=== PATIENT | female | born 1985 | race Caucasian/White ===

== ENCOUNTER 2017-08-26 08:00 | Outpatient (CLI) | payer OTHER | END 2017-08-26 08:01 | disposition home or self-care (01) | LOC: ULT 08:00 → BICULT 08:01 | PROVIDERS: ATTEND Obstetrics & Gynecology | DX: N63.0 Unspecified lump in unspecified breast (principal) ==

== ENCOUNTER 2018-06-11 05:26 | Inpatient (IN) | payer OTHER ==
[2018-06-11] MEDS ORDERED: CEFAZOLIN/Water 2 GM/20 ML SYRINGE SLOW IVP SCH (05:39)
[2018-06-11] MEDS ORDERED: Lactated Ringer's 1,000 ML IV SCH ×2 (05:39→11:31)
[2018-06-11] MEDS ORDERED: Bicitra 30 ML UDCUP PO SCH (05:39)
[2018-06-11] MEDS ORDERED: Promethazine HCl 25 MG/ML VIAL IM PRN ×2 (05:39→11:31)
[2018-06-11] MEDS ORDERED: Ondansetron PF 4 MG/2 ML Vial IVP PRN ×2 (05:39→11:31)
[2018-06-11 06:17] VITALS: BMI 25.0
[2018-06-11 06:18] LABS: Hemoglobin 12.2 g/dL (12.0-16.0); Mean Corpuscular HGB CONC 31.5 g/dL (32.0-36.0); Mean Corpuscular Volume 88.9 fL (78.0-98.0); Mean Platelet Volume 7.1 fL (7.4-10.4); Platelet Count 215 thou/uL (130-400); RBC Distribution Width 15.6 % (11.5-14.5); Red Blood Cell (RBC) Count 4.35 mill/uL (4.20-5.40); White Blood Cell (WBC) Count 6.5 thou/uL (4.8-10.8)
[2018-06-11] MEDS ORDERED: Morphine PF 1 MG/ML SYR ONE (06:38)
[2018-06-11] MEDS ORDERED: Bupivacaine 0.75% W/DEXTROSE 8.25% 2 ML AMP ONE (06:38)
[2018-06-11] MEDS ORDERED: Oxytocin 10 UNITS/ML VIAL ONE (06:39)
[2018-06-11] MEDS ORDERED: Ondansetron PF 4 MG/2 ML Vial ONE ×2 (06:40→14:30)
[2018-06-11] MEDS ORDERED: PHENYLEPHRINE-NS 100 MCG/ML 10 ML SYRINGE ONE (06:41)
[2018-06-11] MEDS ORDERED: ePHEDrine/0.9% NaCl/PF SYRINGE 50 mg/10 ml ONE ×2 (06:42→14:30)
[2018-06-11 06:49] LABS: HBSAg Index 0.25 S/CO (0-0.99); Hep B Surf Ag Non-Reactive S/CO (NonReactive); Syphilis Antibody Nonreactive (Nonreactive); Syphilis Antibody Index 0.03 S/CO (<1.00 Non-Reactive)
[2018-06-11] MEDS ORDERED: CEFAZOLIN 2 GM/50 ML BAG ONE (06:56)
[2018-06-11] MEDS ORDERED: HYDROmorphone 2 MG/ML VIAL SLOW IVP PRN ×2 (08:12→08:13)
[2018-06-11] MEDS ORDERED: Ondansetron HCl/PF 4 MG/2 ML Vial IVP PRN ×2 (08:12→08:13)
[2018-06-11] MEDS ORDERED: L&D-Morphine 4 MG/ML VIAL SLOW IVP PRN ×2 (08:12→08:13)
[2018-06-11] MEDS ORDERED: Meperidine HCl/PF 25 MG/ML VIAL SLOW IVP PRN ×2 (08:12→08:13)
[2018-06-11] MEDS ORDERED: Ketorolac Tromethamine 30 MG/ML VIAL IVP SCH ×2 (08:15)
--- NOTE | 2018-06-11 08:24 | PDOC.LDHP ---
Labor and Delivery H&P Chief complaint: scheduled section HPI: Pt is a @ 39 weeks here for RCS, declines TOLAC. Current gestational age (weeks): 39 Due date: 06/17/18 Dating criteria: last menstrual period Grav: 2 Para: 1 OB History Details: 1CS Current complications: gestational diabetes Abnormal US findings: No Current medications: pre- vitamins Previous surgical history: low tranverse CS Allergies/Adverse Reactions: Allergies Allergy/AdvReac Type Severity Reaction Status Date / Time piperacillin [From Zosyn] Allergy Rash Verified 06/11/18 06:21 tazobactam [From Zosyn] Allergy Rash Verified 06/11/18 06:21 Social history: none - Physical Exam Vital signs reviewed and normal: yes General: resting Heart: RRR Lungs: CTAB Abdomen: gravid Extremeties: no edema FHT: category 1 - OB Labs Blood type: O RH: positive Antibody Screen: negative HIV: negative RPR: negative HEPSAg: negative 1 hour GCT: positive (3hrs) 3 hour GTT: positive Rubella: immune - Plan Plan: admit to L&D, informed consent obtained, anesthesia consult for pain management -: A/P: RCS @ 39 weeks for declines TOLAC.
--- NOTE | 2018-06-11 08:28 | PDOC.OPDEL ---
OB Operative/Delivery Note Delivery Dr/Surgeon: Ronen Assist: Jacqui Pre-Delivery Diagnosis: scheduled section Procedure/Post Delivery Dx: repeat low transverse CS Weeks gestation: 39 Anesthesia: spinal - Findings A Sex: female Weight: 8 lb - 1 min: 8 - 5 min: 9 - Additional Findings/Plan Placenta delivered: spontaneous findings: low transverse hysterotomy without extension, normal uterus, normal tubes, normal ovaries Estimated blood loss: 400ml Post delivery plan: routine recovery
--- NOTE | 2018-06-11 09:06 | OP ---
DATE OF PROCEDURE: 06/11/2018 PREOPERATIVE DIAGNOSES: 1. A 32-year-old G2, P1-0-0-1 at 39 weeks. 2. Gestational diabetes, diet controlled. 3. Declines trial of labor, request repeat section. POSTOPERATIVE DIAGNOSES: 1. A 32-year-old G2, P1-0-0-1 at 39 weeks. 2. Gestational diabetes, diet controlled. 3. Declines trial of labor, request repeat section. PROCEDURES PERFORMED: Repeat low transverse section. SURGEON: Matthew Hardwick D.O. TV PRODUCTION ASSISTANT: Regine Osman D.O. ANESTHESIA: Spinal per Hardy MILLER. COMPLICATIONS: None. ESTIMATED BLOOD LOSS: 400 mL. FINDINGS: 1. Low transverse hysterotomy without extension. 2. No intraabdominal adhesive disease. 3. Normal appearing uterus and tubes and ovaries bilaterally. 4. Vigorous female infant, Apgars 8 and 9, weight 8 pounds 0 ounces to nursery. 5. Placenta delivered intact with 3-vessel cord. 6. Uterine fundus firm. 7. Surgical sites and hysterotomy hemostatic. PROCEDURE DETAILS: The patient was taken back to the OR with IV fluids running. Once she was in the OR, spinal anesthesia was obtained. The patient was placed in dorsal supine position with a left la teral tilt. Prophylactic antibiotics were administered. SCDs were placed on lower extremities. A F oley catheter was placed using sterile technique. The abdomen was then prepped and draped in normal fashion for section. The surgeons were scrubbed in and anesthesia was tested and found to b e adequate. A Pfannenstiel skin incision was made through the skin with a scalpel, a skin incision w as carried down through the subcutaneous layer to the fascia. Once the fascia was reached, it was in cised in the midline and extended superior laterally using curved Bay scissors. Karen clamps were placed at the superior border of the fascia, which was sharply and bluntly dissected off the rectus a bdominis muscle to allow adequate space for the infant both superiorly and inferiorly. After adequat e space was created the rectus muscles were bluntly . The peritoneal cavity was bluntly ent ered and stretched laterally. An Vick O retractor was placed into the peritoneal cavity for retrac tion, visualization and protection of the wound. A bladder flap was created and the bladder was diss ected away from the planned hysterotomy site. A low transverse hysterotomy was made with the scalpel . Hysterotomy was bluntly entered with placenta immediately noted. The infant's head was then eleva jared through the hysterotomy and the infant was delivered with spontaneous amniotomy at that time and clear fluid noted. The 's body was delivered without difficulty. The infant had an immediate cry at the bedside. The nose and mouth were suctioned. Cord was doubly clamped and cut and the infa nt was handed off to special care nurses in attendance. Cord blood was collected. The placenta was delivered. Uterus was exteriorized, massaged to firm, and cleared of clot and debris with a clean, d ry sponge. The uterus was returned to the abdominal cavity. Hysterotomy was inspected with no exten sions noted. The hysterotomy was closed with Monocryl suture in a running locked fashion. After the hysterotomy was closed, the hysterotomy and pericolic gutters were irrigated and suctioned dry. Hys terotomy was inspected again with no bleeding noted. The Vick O retractor was taken out of the abd omen. The initial count was correct. The muscle belly and fascia were inspected with no areas of bl eeding noted. The fascia was reapproximated in a running fashion with PDS suture. After the fascia was closed, the subcutaneous tissue was irrigated and dried. Any small areas of bleeding were contro lled with Bovie cauterization. Subcutaneous tissue was reapproximated with a series of interrupted p ashley gut suture. The skin was closed with 4-0 Monocryl and dressed with Dermabond dressing. The cou nt was correct. The uterus again was massaged and noted to be firm. The patient was taken to recove ry room after being cleaned and dried in good condition.
[2018-06-11] MEDS ORDERED: NS / Oxytocin 40 units/1000ml 1,000 ML ONE (09:32)
[2018-06-11] MEDS ORDERED: Adacel (T-DAP) 0.5 ML VIAL IM ONE (11:31)
[2018-06-11] MEDS ORDERED: Lanolin Ointment 7 GM TUBE TOP PRN (11:31)
[2018-06-11] MEDS ORDERED: Meperidine HCl/PF 25 MG/ML VIAL IM PRN (11:31)
[2018-06-11] MEDS ORDERED: NS / Oxytocin 40 units/1000ml 1,000 ML IV SCH (11:31)
[2018-06-11] MEDS ORDERED: HYDROcodone/Acetaminophen 5/325 mg Tablet PO PRN ×2 (11:31)
[2018-06-11] MEDS ORDERED: Simethicone Chewable 80 MG TAB PO PRN (11:31)
[2018-06-11] MEDS ORDERED: diphenhydrAMINE 25 MG CAP PO PRN (11:31)
[2018-06-11] MEDS ORDERED: Bisacodyl 10 MG SUPP PR PRN (11:31)
[2018-06-11] MEDS ORDERED: Docusate Calcium (SURFAK) 240 MG CAP PO SCH (11:45)
[2018-06-11] MEDS ORDERED: Prenatal Vitamin 1 TAB PO SCH (11:45)
[2018-06-11] MEDS ORDERED: Ferrous Sulfate 325 MG TAB PO SCH (11:45)
[2018-06-11] MEDS: Ibuprofen 800 MG TAB PO SCH ×2 (14:52→23:09)
[2018-06-11] MEDS: Ferrous Sulfate 325 MG TAB PO SCH (18:32)
[2018-06-11] MEDS: Docusate Calcium (SURFAK) 240 MG CAP PO SCH (23:08)
[2018-06-12] MEDS: Ibuprofen 800 MG TAB PO SCH ×3 (04:59→21:26)
[2018-06-12 06:02] LABS: Hemoglobin 11.9 g/dL (12.0-16.0); Mean Corpuscular HGB CONC 32.9 g/dL (32.0-36.0); Mean Corpuscular Hemoglobin 29.3 pg (27.0-31.0); Mean Corpuscular Volume 88.9 fL (78.0-98.0); Mean Platelet Volume 6.7 fL (7.4-10.4); Platelet Count 180 thou/uL (130-400); RBC Distribution Width 15.5 % (11.5-14.5); Red Blood Cell (RBC) Count 4.06 mill/uL (4.20-5.40); White Blood Cell (WBC) Count 9.8 thou/uL (4.8-10.8)
--- NOTE | 2018-06-12 06:15 | PDOC.PP ---
Post Progress Note Post Day #: 1 Subjective: Doing well PO intake tolerated: yes Flatus: yes Ambulation: yes Vital Signs (12 hours) Temp Pulse Resp BP Pulse Ox 06/12/18 04:55 97.8 F 67 18 102/60 06/12/18 00:10 97.9 F 69 18 103/62 98 06/11/18 20:00 97.7 F 64 18 111/72 99 Weight Weight 165 lb - Physical Examination General: NAD Cardiovascular: no m/r/g Respiratory: clear to auscultation bilaterally Abdominal: + bowel sounds, lochia Extremities: negative homans (B) Skin: CS incision dry & intact (Sutured and DB closed) Neurological: no gross focal deficits Psychiatric: A&Ox3, normal affect Result Diagrams: 06/12/18 05:51 Additional Labs: Post Labs Blood Type O POSITIVE 06/11/18 05:49 Hep Bs Antigen Non-Reactive S/CO (NonReactive) 06/11/18 05:49 (1) delivery, delivered, current hospitalization Code(s): O82 - ENCOUNTER FOR DELIVERY WITHOUT INDICATION Status: Acute - Assessment/Plan POD1 doing well. Passing dlatus. Hx A1DM on diet control. We will continue obs and routine postop care today.
[2018-06-12] MEDS: Ferrous Sulfate 325 MG TAB PO SCH ×2 (08:26→16:26)
[2018-06-12] MEDS: Prenatal Vitamin 1 TAB PO SCH (08:40)
[2018-06-12] MEDS: Docusate Calcium (SURFAK) 240 MG CAP PO SCH ×2 (08:40→21:26)
[2018-06-13 05:12] VITALS: TEMP 97.9
[2018-06-13] MEDS: Ibuprofen 800 MG TAB PO SCH (06:08)
--- NOTE | 2018-06-13 06:46 | PDOC.PP ---
Post Progress Note Post Day #: 2 PO intake tolerated: yes Flatus: yes Ambulation: yes Vital Signs (12 hours) Temp Pulse Resp BP 06/13/18 04:45 97.9 F 74 18 101/59 L 06/12/18 23:48 97.6 F 68 18 100/60 Weight Weight 165 lb - Physical Examination General: NAD Cardiovascular: no m/r/g, RRR Respiratory: clear to auscultation bilaterally, non-labored breathing Abdominal: + bowel sounds, lochia, no distention, appropriately TTP Extremities: negative homans (B) Skin: CS incision dry & intact, no rash Neurological: no gross focal deficits Psychiatric: A&Ox3, normal affect Result Diagrams: 06/12/18 05:51 Additional Labs: Post Labs Blood Type O POSITIVE 06/11/18 05:49 Hep Bs Antigen Non-Reactive S/CO (NonReactive) 06/11/18 05:49 - Assessment/Plan doing well desires pod 2 dc from repeat cs
[2018-06-13 08:25] VITALS: BP 104/69
[2018-06-13] MEDS: Prenatal Vitamin 1 TAB PO SCH (09:19)
[2018-06-13] MEDS: Ferrous Sulfate 325 MG TAB PO SCH (09:20)
[2018-06-13] MEDS: Docusate Calcium (SURFAK) 240 MG CAP PO SCH (09:20)
== END 2018-06-13 12:35 | disposition home or self-care (01) | DRG 788 ==
LOC: L&D 05:26 → 3SW 10:40
PROVIDERS: ADMIT Obstetrics & Gynecology; ATTEND Obstetrics & Gynecology
PROC: 10D00Z1 Extraction of Products of Conception, Low, Open Approach (ICD-10-PCS; principal; 2018-06-11)
PROC: 10907ZC Drainage of Amniotic Fluid, Therapeutic from Products of Conception, Via Natural or Artificial Opening (ICD-10-PCS; 2018-06-11)
DX: O34.211 Maternal care for low transverse scar from previous cesarean delivery (principal); Z3A.39 39 weeks gestation of pregnancy; Z37.0 Single live birth; O24.420 Gestational diabetes mellitus in childbirth, diet controlled
CPT/HCPCS: 36415; 51702; 85027; 86780; 86850; 86900; 86901; 87340; J2274; J2405; J2590; J3490